=== PATIENT | male | born 1965 | race Caucasian/White ===

== ENCOUNTER → 2018-01-08 | Outpatient (CLI) | payer BC ==
[~2018-01-08] MED LIST: ALPR0.5T6 PO; DICL75TA PO; OXYC1TAB22 PO
--- NOTE | 2018-01-08 15:54 | EKG ---
[facility] [address] [place] [address] Test Date: 2018-01-08 Test Time: 15:52:23 Pat Name: AIRAM SORIA Department: Room: Gender: M Oncology Rn: SOM : 1965 Requested By: OMA PEREIRA Order Number: [id number] Reading MD: Harpal Palmer Measurements Intervals Brandon Rate: 63 P: 76 AK: 132 QRS: 103 QRSD: 90 T: 42 QT: 380 QTc: 392 Interpretive Statements SINUS RHYTHM RIGHTWARD AXIS Electronically Signed On 01-09-2018 15:41:39 QUALITY RN by Harpal Palmer
[2018-01-08 16:16] LABS: BASO # 0.1 x10^3/uL (0.0-0.2); BASO % 1 % (0-3); EOS # 0.1 x10^3/uL (0.0-0.7); EOS % 2 % (0-3); HEMATOCRIT 47.6 % (39.0-53.0); HEMOGLOBIN 16.2 g/dL (13.0-17.5); LYMPH # 3.4 x10^3/uL (1.0-4.8); LYMPH % 42 % (24-48); MEAN CORPUSCULAR HEMOGLOBIN 29 pg (25-35); MEAN CORPUSCULAR HGB CONC 34 g/dL (31-37); MEAN CORPUSCULAR VOLUME 86 fL (79-100); MONO # 0.8 x10^3/uL (0.0-1.1); MONO % 10 % (0-9); NEUT # 3.8 x10^3uL (1.8-7.7); NEUT % 46 % (31-73); PLATELET COUNT 315 x10^3/uL (140-400); RED BLOOD COUNT 5.53 x10^6/uL (4.30-5.70); RED CELL DISTRIBUTION WIDTH 14.2 % (11.5-14.5); WHITE BLOOD COUNT 8.1 x10^3/uL (4.0-11.0)
[2018-01-08 16:44] LABS: ALBUMIN 3.7 g/dL (3.4-5.0); CALCIUM 9.4 mg/dL (8.5-10.1); CREATININE 0.8 mg/dL (0.7-1.3); GFR 102.3; POTASSIUM 4.1 mmol/L (3.5-5.1); TOTAL BILIRUBIN 0.2 mg/dL (0.2-1.0); TOTAL PROTEIN 7.5 g/dL (6.4-8.2)
== END | disposition home or self-care (01) ==
LOC: SURGPAT 13:39
PROVIDERS: ATTEND Neurological Surgery
DX: Z01.818 Encounter for other preprocedural examination (principal); M48.02 Spinal stenosis, cervical region; M54.12 Radiculopathy, cervical region; I10 Essential (primary) hypertension
CPT/HCPCS: 36415; 80053; 85025; 87641; 93005

== ENCOUNTER 2018-01-22 08:19 | Observation (INO) | payer BC ==
--- NOTE | 2018-01-20 12:07 | HP ---
ADMIT DATE: 01/22/2018 DATE OF SURGERY: 01/22/2018. HISTORY OF PRESENT ILLNESS: The patient is a pleasant 52-year-old who is having difficulty with neck pain as well as pain which radiates into his right shoulder, arm and forearm to involve the right hand. He says he notices decreased strength in his right arm. He also notices unsteadiness with walking. The problem started in 04/2017 when his right arm gave out. He rates his pain as 6/10. Mornings are more painful for him. Increasing activity also increases his pain. He takes 2-4 oxycodone a day. Recently, he began having physical therapy in his neck, and he does not notice significant improvement. PAST MEDICAL HISTORY: Arthritis, gout, headaches and migraines, head or neck injury. PAST SURGICAL HISTORY: Right knee ACL in 1985, right knee ACL 1989, left knee meniscus, right knee meniscus. FAMILY HISTORY: Noncontributory. SOCIAL HISTORY: Tobacco use, currently he is not a smoker. He has been a smoker in the past, but quit 6-12 months ago. He is employed as a [employer]. . Never exercises. Denies substance abuse. Drinks alcohol 1-2 times per year. Drinks coffee daily and soda. ALLERGIES: AMOXICILLIN. CURRENT MEDICATIONS: Oxycodone and Xanax. REVIEW OF SYSTEMS: A 12-point review of systems was obtained and is noncontributory except for that mentioned above. PHYSICAL EXAMINATION: NEUROSURGERY EXAMINATION: GENERAL APPEARANCE: Alert, pleasant, no acute distress. HEAD: Normocephalic and atraumatic. NECK AND THYROID: Lywm-mi-qucfmxxt tenderness with palpation of posterior cervical region. SKIN: Warm and dry. MUSCULOSKELETAL: Cervical paraspinal muscle bulk is normal, cervical range of motion is restricted, normal range of motion of the upper extremities bilaterally. EXTREMITIES: No clubbing, cyanosis or edema. NEUROLOGIC: Alert and oriented x 3, normal recent and remote memory, strength 5/5 in bilateral upper and lower extremities except for 4+/5 right biceps and triceps. Sensory was intact to light touch in the upper and lower extremities, reflexes were trace and symmetric in the upper and lower extremities bilaterally, normal gait. IMAGING: I reviewed his cervical MRI scan from 08/2017. On that study at C6-C7, there is moderately severe cervical spinal stenosis of the central canal. There is severe bilateral neural foraminal narrowing. At C5-C6, there is a mild canal stenosis, but with severe bilateral neural foraminal narrowing. ASSESSMENT/PLAN: I believe the problems at C5-C6 and C6-C7 are responsible for a significant portion of his pain. I recommended that he undergo 2-level anterior cervical diskectomy and fusion. I discussed with him the surgery and the risks involved. He understands. He would like to go ahead. We will make the arrangements. OMA PEREIRA MD DR: PAULA/es JOB#: [id number] / [id number] STEPHON
[2018-01-22] VITALS (10 sets, daily range): BP systolic 94–126; BP diastolic 61–82
[~2018-01-22] VITALS: Ht 170.2 cm; Wt 67.1 kg
[~2018-01-22 08:19] MED LIST changes: +BACITRACIN 50,000 UNIT in IV NORMAL SALINE 1000ML BAG 1,000 ML IRR ONE; +BUPIVAC MPF-EPI 0.5%-1:200000 30 ML VIAL. ONE; +GELATIN SPONGE SIZE 100. ONE; +IV RINGERS,LACTATED 1000ML 1,000 ML IV SCH; +LIDOCAINE 1% PF 2 ML VIAL. ID PRN; +MORPHINE SULFATE 2 MG/ML VIAL. IV PRN; +ONDANSETRON PF 4 MG/2 ML VIAL. IV PRN; +PROCHLORPERAZINE 10 MG/2 ML VIAL. IV PRN; +THROMBIN TOPICAL 20,000 UNIT SPRAY.SYRN KIT TP ONE; +VANCOMYCIN 1GM IVPB FOR OMNI 250 ML IV ONE; +fentaNYL PF VIAL 100 MCG/2 ML VIAL IV PRN
[2018-01-22] MEDS ORDERED: IV RINGERS,LACTATED 1000ML 1,000 ML IV ONE (09:15)
[2018-01-22] MEDS ORDERED: PROPOFOL 100 ML IV ONE (09:24)
[2018-01-22] MEDS ORDERED: DESFLURANE > 120 MINUTES IH ONE (09:30)
[2018-01-22] MEDS ORDERED: fentaNYL PF VIAL 100 MCG/2 ML VIAL ONE ×2 (09:30→15:25)
[2018-01-22] MEDS ORDERED: REMIFENTANIL 2 MG VIAL. IV ONE (09:30)
[2018-01-22] MEDS ORDERED: GLYCOPYRROLATE 1 MG/5 ML VIAL. ONE (09:31)
[2018-01-22] MEDS ORDERED: PROPOFOL 20 ML IV ONE (09:31)
[2018-01-22] MEDS ORDERED: NEOSTIGMINE METHYLSULFATE 5 MG/5 ML SYRINGE. ONE (09:31)
[2018-01-22] MEDS ORDERED: LIDOCAINE 2% PF Vial for OR 5 ML VIAL. ONE (09:31)
[2018-01-22] MEDS ORDERED: ROCURONIUM 50 MG/5 ML VIAL. ONE (09:31)
[2018-01-22] MEDS ORDERED: ONDANSETRON PF 4 MG/2 ML VIAL. ONE (09:32)
[2018-01-22] MEDS ORDERED: DEXAMETHASONE SOD PHOS 20 MG/5 ML VIAL. ONE (09:32)
[2018-01-22] MEDS ORDERED: 0.9 % SODIUM CHLORIDE 20 ML VIAL. IJ ONE ×2 (09:32)
[2018-01-22] MEDS ORDERED: MIDAZOLAM HCL/PF 2 MG/2 ML VIAL. ONE (09:34)
[2018-01-22] MEDS ORDERED: PHENYLEPHRINE 10 MG/ML VIAL. ONE ×2 (09:40→14:39)
[2018-01-22] MEDS ORDERED: VANCOMYCIN 1GM IVPB FOR OMNI 250 ML ONE (09:40)
[2018-01-22] MEDS ORDERED: SCOPOLAMINE 1.5MG PATCH. TD ONE (11:00)
[2018-01-22] MEDS ORDERED: HYDROmorphone 2 MG/ML VIAL ONE (15:24)
[2018-01-22] MEDS ORDERED: PROCHLORPERAZINE 10 MG/2 ML VIAL. ONE (15:25)
[2018-01-22] MEDS: fentaNYL PF VIAL 100 MCG/2 ML VIAL IV PRN ×2 (15:34→15:41)
[2018-01-22] MEDS: HYDROmorphone 2 MG/ML VIAL IV PRN ×4 (16:01→17:08)
[2018-01-22] MEDS ORDERED: MAGNESIUM HYDROXIDE 2,400 MG/30 ML ORAL.SUSP. PO PRN (16:15)
[2018-01-22] MEDS ORDERED: NALOXONE 0.4 MG/ML VIAL. IV PRN (16:15)
[2018-01-22] MEDS ORDERED: CALCIUM CARBONATE 500 MG TAB.CHEW PO PRN (16:15)
[2018-01-22] MEDS ORDERED: diphenhydrAMINE HCL 25 MG CAPSULE PO PRN (16:15)
[2018-01-22] MEDS ORDERED: fentaNYL PF VIAL 100 MCG/2 ML VIAL IV PRN (16:15)
[2018-01-22] MEDS ORDERED: 0.9 % SODIUM CHLORIDE 10 ML DISP.SYRIN. IV PRN (16:15)
[2018-01-22] MEDS ORDERED: MAG HYDROX/ALUMINUM HYD/SIMETH 30 ML ORAL.SUSP PO PRN (16:15)
[2018-01-22] MEDS ORDERED: ONDANSETRON PF 4 MG/2 ML VIAL. IV PRN (16:15)
[2018-01-22] MEDS ORDERED: oxyCODONE/APAP 10/325 1 TAB TABLET PO PRN (16:15)
[2018-01-22] MEDS ORDERED: ALPRAZolam 0.5 MG TABLET PO PRN (16:15)
[2018-01-22] MEDS ORDERED: ACETAMINOPHEN 325 MG TABLET. PO PRN (16:15)
[2018-01-22] MEDS ORDERED: oxyCODONE/APAP 5/325 1 TAB TABLET PO PRN (16:15)
[2018-01-22] MEDS ORDERED: POTASSIUM CL 20MEQ D5-0.45NACL 1,000 ML IV SCH (18:00)
[2018-01-22] MEDS: oxyCODONE/APAP 5/325 1 TAB TABLET PO PRN (20:10)
[2018-01-22] MEDS: DOCUSATE SODIUM 100 MG CAPSULE. PO SCH (20:49)
[2018-01-22] MEDS: METHOCARBAMOL 750 MG TABLET PO SCH (20:49)
[2018-01-23] MEDS: oxyCODONE/APAP 5/325 1 TAB TABLET PO PRN ×3 (00:01→09:20)
[2018-01-23 03:15] VITALS: BP 105/72
[2018-01-23 06:33] VITALS: BP 134/46
[2018-01-23] MEDS: DOCUSATE SODIUM 100 MG CAPSULE. PO SCH (08:39)
[2018-01-23] MEDS: METHOCARBAMOL 750 MG TABLET PO SCH (08:39)
--- NOTE | 2018-01-23 09:08 | DISCH ---
DISCHARGE INSTRUCTIONS Condition on Discharge Condition on Discharge: Stable Activity After Discharge Activity Instructions for Disc: Activity as tolerated, Avoid exertion Other activity instructions: no driving for a week Bathing Instructions: Shower-keep dressing dry Lifting Instructions after Dis: No heavy lifting, No pulling or pushing, Do not lift >10 pounds Driving Instructions after Dis: Do not drive Diet after Discharge Additional Diet Restrictions: resuem home diet Wound Incision Care Wound/Incision Care: Ice to area for comfort Other wound/incision instructi: may remove dressing in 48 hrs if dry then may shower, no soaking Contacting the after DC Call your doctor for: Concerns you may have Follow-Up Follow up with: Dr. Pereira's nurse in 2 weeks [phone] OMA PEREIRA MD Jan 23, 2018 09:08
[2018-01-23] MEDS ORDERED: METH750T2 PO (09:10)
[2018-01-23] MEDS ORDERED: OXYC1TAB15 PO (09:10)
[2018-01-23] MEDS ORDERED: DOCU-109 PO (09:10)
[2018-01-23 10:37] VITALS: BP 121/81
--- NOTE | 2018-01-25 16:08 | PATHOLOGY ---
[facility] Accession Number: [id number] . 01 Material submitted: . CERVICAL DISC . 01 Clinical history: . Cervical stenosis, radiculopathy . 02 Diagnosis: Segments of fibrocartilaginous tissue and bone, cervical disc: - Degenerative changes of fibrocartilaginous tissue. (JPM:calender tender; 01/25/2018) MBR/01/25/2018 . 02 Comment: There is no evidence of an acute inflammatory process or malignancy. (JPM:calender tender; 01/25/2018) . 02 Electronically signed: . Antonio Rodriguez MD, Pathologist NPI- [id number] . 01 Gross description: . Received in formalin labeled "Stucky, Fausto, cervical disc," are several pieces of glistening, fibrous tissue measuring 2.5 x 1.5 x 0.6 cm in aggregate dimensions, containing small fragments of possible bone. The tissue is filtered and submitted entirely in cassette A1, following decalcification. (TSD; 01/23/2018) TOB/TOB . 02 Pathologist provided ICD-10: M51.36 . 02 CPT . 485725, [id number] Specimen Comment: A courtesy copy of this report has been sent to Specimen Comment: [phone]. Specimen Comment: Report sent to Performed at: 01 [facility] [address], [place] [id number] MD Suhas Buck MD Phone: [phone] Performed at: 02 [facility] [address] [place], [place] [id number] MD Antonio Rodriguez MD Phone: [phone]
--- NOTE | 2018-01-26 22:09 | OP ---
DATE OF SURGERY: 01/22/2018 PREOPERATIVE DIAGNOSES: 1. Cervical spinal stenosis, C6-C7. 2. Severe foraminal narrowing C5-C6. 3. Cervical myelopathy and cervical radiculopathy. POSTOPERATIVE DIAGNOSES: 1. Cervical spinal stenosis, C6-C7. 2. Severe foraminal narrowing C5-C6. 3. Cervical myelopathy and cervical radiculopathy. OPERATION PERFORMED: Anterior cervical microdiscectomy C5-C6, C6-C7; anterior cervical interbody fusion, C5-C6, C6-C7 with interbody fusion cage packed with allograft and autograft bone; anterior cervical plate C5-C6, C6-C7 using the Opteryx system. SURGEON: Raymundo Pereira M.D. SOLE ROUGHER: VANESSA Harris, assisted with the surgery. She assisted with the 2-level decompression and instrumentation. The operation was done with multimodality monitoring including EMG, SSEP, motor-evoked potentials. We also used fluoroscopy, microscopic dissection. OPERATIVE INDICATIONS: The patient is a pleasant 52-year-old man who developed difficulty with neck and right arm pain, which became more and more severe. He also developed weakness in his right arm. Following this, he began to develop problems with unsteadiness with walking. He went through physical therapy and did not improve. I discussed with him the results of his imaging studies and my recommendation for surgery. He understood the surgery and he understood well the risks of anterior neck surgery including the sequelae of injury to the soft tissue structures of the neck including the esophagus, trachea, carotid artery as well as the nervous elements. He strongly wished to go ahead with surgery. DESCRIPTION OF PROCEDURE: Following general endotracheal anesthesia, the patient was positioned supine on the Operating Room table. The anterior cervical region was prepped and draped in standard fashion. LASHONDA hose and AV impulse boots were applied for DVT prophylaxis. Microscope was draped. Fluoroscope was draped and brought into the field. Monitoring was established. Vancomycin 1 gram was given prior to the operation. Using fluoroscopic guidance, incision was made from the midline around to the right side in a skin crease directly over the C6-C7 interspace. I dissected down through skin and subcutaneous tissue, I dissected around the medial aspect of the sternocleidomastoid and carotid artery sheath down the anterior cervical vertebral bodies. I reflected the trachea and esophagus contralaterally and placed self-retaining retractor wedged in the longus colli muscles. I placed 14 mm pins in C6 and C7 and using microscopic technique, then I incised the anterior annulus with #11 blade. I performed a generous microdiscectomy with pituitary rongeurs as well as the endplate scrapers. I drilled the anterior spurring and saved this bone to use for the fusion and then posteriorly I drilled the posterior spurring. I opened the annulus and ligament widely bilaterally. There was considerable posterior disc bulging and soft disc, which I pulled back and removed and I fully decompressed the entire region. I measured and placed interbody fusion cage, which was packed with allograft and autograft bone after I obtained perfect hemostasis. I then moved superiorly removing the pin from C7 and placing it into C5 along with the retractors repositioned superiorly. I performed the identical operation at C5-C6, again performed a generous discectomy in which there was considerable degenerative change of the disc. I worked laterally bilaterally and had excellent distraction and opened the foramina. I had opened the annulus and the posterior ligament as well and I fully decompressed the entire region. Again, I obtained excellent hemostasis. Again, I prepared the disc space carefully and scraped the cartilaginous endplate. I then measured and placed interbody fusion cage packed with allograft and autograft bone. I placed an anterior plate and placed superior and inferior 14 mm screws followed by the remaining screws, which were all locked. I irrigated copiously with antibiotic solution and then removed the retractor and I explored carefully and assured myself of excellent hemostasis which there was. I gently removed my retractors, continued to irrigate, closed the platysma as a separate layer, closed with subcutaneous tissue and the skin was closed with 4-0 subcuticular stitch. The operation went very well and the patient was taken to the recovery room and awakened uneventfully with excellent strength. I was quite pleased with the surgery. RAYMUNDO PEREIRA MD DR: PAULA/es JOB#: [id number] / [id number] STEPHON
== END 2018-01-23 10:40 | disposition home or self-care (01) ==
LOC: SURG 08:19 → EDUNIT# 10:30 → 4 SOUTHEST 17:07
PROVIDERS: ADMIT Neurological Surgery; ATTEND Neurological Surgery
DX: M48.02 Spinal stenosis, cervical region (principal); M54.12 Radiculopathy, cervical region; G95.9 Disease of spinal cord, unspecified; M19.90 Unspecified osteoarthritis, unspecified site; G43.909 Migraine, unspecified, not intractable, without status migrainosus; Z72.0 Tobacco use
CPT/HCPCS: 20930; 22551; 22552; 22845; 22853; 76000; 88304; 88311; 96374; 97110; 97162; 97530; 99406; A7015; C1713; C1821; G0378; G0379; G8978; G8979; G8980; J0780; J1100; J1170; J2001; J2250; J2405; J2704; J2710; J3010; J3370; J3490; J7030; J7120

== ENCOUNTER → 2018-04-13 | Outpatient (CLI) | payer BC ==
[~2018-04-13] MED LIST changes: -BACITRACIN 50,000 UNIT in IV NORMAL SALINE 1000ML BAG 1,000 ML IRR ONE; -BUPIVAC MPF-EPI 0.5%-1:200000 30 ML VIAL. ONE; +DOCU-109 PO; -GELATIN SPONGE SIZE 100. ONE; +IOHEXOL 180 MG/ML 10 ML VIAL. ONE; -IV RINGERS,LACTATED 1000ML 1,000 ML IV SCH; -LIDOCAINE 1% PF 2 ML VIAL. ID PRN; +METH750T2 PO; -MORPHINE SULFATE 2 MG/ML VIAL. IV PRN; -ONDANSETRON PF 4 MG/2 ML VIAL. IV PRN; +OXYC1TAB15 PO; -PROCHLORPERAZINE 10 MG/2 ML VIAL. IV PRN; +SIMV20TA3 PO; -THROMBIN TOPICAL 20,000 UNIT SPRAY.SYRN KIT TP ONE; -VANCOMYCIN 1GM IVPB FOR OMNI 250 ML IV ONE; -fentaNYL PF VIAL 100 MCG/2 ML VIAL IV PRN; +methylPREDNISolone ACETATE 40 MG/ML VIAL. ONE; +methylPREDNISolone ACETATE 80 MG/ML VIAL. ONE
--- NOTE | 2018-04-13 22:56 | PAIN ---
DATE OF SERVICE: 04/13/2018 INITIAL CONSULTATION FOR PAIN CLINIC CHIEF COMPLAINT: Low back and right lower extremity pain. HISTORY OF PRESENT ILLNESS: This is a 52-year-old male who presents with history of pain for about 12 years, worse over the past 1 year, pain in the low back, right lower extremity, posterior gluteus, posterolateral thigh, lateral anterior thigh, medial thigh, medial lower leg and medial calf. This has been going on much worse over the past year, worse with standing, walking and changing positions. No radiation on the left side, but the right side is significantly affected with fatigability of the right leg. The patient is walking with a noticeable limp. The patient reports the pain awakens him from sleep about every 3 hours and does affect his ability to walk significantly. He is not using any assistive devices; however. The patient has had chiropractic treatment in the past, which has helped to a limited extent. He has been doing exercises on his own, but is having difficulty getting these done secondary to the pain. The patient takes oxycodone and is trying to wean himself down. He has been taking two a day for several months and would like to decrease this as well as it is beginning to work less and less. The patient did have an MRI scan of the lumbar spine, which shows L3-L4 moderate central spinal stenosis, right lateral recess stenosis, mild to moderate right and minimal left neural foraminal stenosis, L4-L5 with moderate central spinal stenosis and right lateral recess stenosis, marked right and moderate left neural foraminal stenosis with L5-S1 moderate left and [id number] right neural foraminal stenosis as well. The patient reports his disability rate from 0-10, 10 being the worst as at 9 with family home responsibilities, social activity and sexual behavior, 10 with recreation and occupation and 4 with life support activities. The patient reports the pain is better with sitting or lying down, but again is awakening him from sleep every 3 hours or so, sitting for more than 15-20 minutes it begins to ache as well. Standing and walking; however, is the most exacerbating pain. The patient describes it sharp, stabbing, throbbing, shooting, radiating down the right leg. He described changes during the day with activity, worse with standing, walking or increased activity. PAST MEDICAL HISTORY: The patient's past medical history is significant for the shortness of breath, cigarette smoking quit 2 months ago, hypercholesterolemia, diverticulosis and arthritis. PREVIOUS SURGERY: Includes an anterior cervical diskectomy and fusion in 01/2018. Previous knee surgery x 8 bilaterally. CURRENT MEDICATIONS: Include alprazolam, simvastatin, diclofenac and oxycodone. ALLERGIES: THE PATIENT IS ALLERGIC TO AMOXICILLIN. FAMILY HISTORY: Significant for no major medical problems or conditions he is aware of. SOCIAL HISTORY: The patient drinks alcohol about 3-5 beers a day, quit smoking 2 months ago, previously smoked a pack a day for about 20 years. Does not use any illegal, illicit or recreational drugs. 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 REVIEW OF SYSTEMS: The patient's review of systems is positive for those items mentioned in the history of present illness. All systems reviewed and otherwise negative. It is complete, full and well documented on the patient's chart. PHYSICAL EXAMINATION: VITAL SIGNS: The patient's blood pressure is 124/66, pulse 81, respirations 18, temperature 98.1 degrees Fahrenheit, height is 5 feet 7 inches and weight is 153 pounds. GENERAL: The patient is awake, alert, oriented, appropriate, very pleasant demeanor. HEENT: Head shows normocephalic and atraumatic. Extraocular movements are intact and symmetrical. Oral cavity: Mucous membranes are moist and pink. Dentition is intact. NECK: Shows anterior throat is supple without palpable lymphadenopathy noted. Swallow reflex is symmetrical. CHEST: Shows normal on inspection. Breath sounds are clear to auscultation bilaterally. HEART: Shows S1 and S2 clear. No murmurs are auscultated. ABDOMEN: Soft, nontender and nondistended. No palpable organomegaly is noted. No rebound or guarding demonstrated. BACK: The patient's back shows spine grossly in the midline. Normal cervical lordotic curvature, thoracic kyphotic curvature and lumbar lordotic curvature. Lumbar paraspinous muscle shows symmetrical on inspection. On palpation, shows moderate tenderness diffusely in the middle and lower lumbar distribution of the paraspinous muscles without significant radiation or trigger points. The patient has good rotational motion of the lumbar spine both laterally as well as extension and flexion without significant difficulty. The patient shows no tenderness over the sacrum or sacroiliac regions over the spinous processes. The patient has good rotational motion of the lumbar spine, both laterally as well as extension and flexion without significant disability or pain reported. EXTREMITIES: The patient's lower extremities show deep tendon reflexes 1+ in the patellar and tendo calcaneus tendons are equal. Motor exam is strong with approximately a 4 on a scale of 5 dorsiflexion and extension on the right and 5/5 on the left, quadriceps and hamstring flexion also 4/5 on the right and 5/5 on the left. Peripheral pulses are 1+ posterior tibia. No peripheral edema is noted bilaterally. Straight leg raise is noted to be positive on the right at about 35 degrees, which decreases with knee flexion, left side is negative. The patient's Gaenslen's and Camilo's maneuvers are negative bilaterally as well. SKIN: The patient's skin shows warm and dry, good turgor. No edema. No sores, rashes or bruising. IMPRESSION: 1. This is a 52-year-old male with a long history of low back and right lower extremity pain, worse over the past year or so with radicular qualities. 2. MRI scan of the lumbar spine as noted. 3. Arthritis. 4. Hypercholesterolemia. 5. Recent cigarette smoking. PLAN: Options were discussed with the patient including conservative medical management, physical therapy and interventional techniques. He would like to pursue interventional techniques. We discussed a lumbar epidural steroid injection using description as well as anatomical models to describe the procedure. Risks were then discussed including, but not limited to bleeding, infection, possibility of epidural hematoma, subsequent neurological compromise, dural puncture, headache, spinal cord and/or nerve damage, side effects of steroid medication and poor results regarding pain control. The patient understands and wishes to proceed. The patient will return to the clinic in approximately 2 weeks for followup, was counseled as to return appointment, activity level and side effects to be aware of. DIAGNOSES: Lumbar radiculopathy with lumbar degenerative disk disease and lumbar spinal stenosis. PROCEDURE: Lumbar epidural steroid injection, translaminar approach L4-L5 level using C-arm fluoroscopic guidance under sterile prep and drape using local anesthetic. MEDICATION INJECTED: A total of 120 mg Depo-Medrol plus 10 mL of preservative-free normal saline and 2 mL of Isovue for contrast. CONDITION AT DISCHARGE: Stable. The patient tolerated the procedure well and had no complications. DUKE COLLIER MD DR: MAR/es JOB#: [id number] / [id number] JW Chatterjee
== END | disposition home or self-care (01) ==
LOC: PNCL 09:46
PROVIDERS: ATTEND Anesthesiology
DX: M51.16 Intervertebral disc disorders with radiculopathy, lumbar region (principal); M48.061 Spinal stenosis, lumbar region without neurogenic claudication; M19.90 Unspecified osteoarthritis, unspecified site; E78.00 Pure hypercholesterolemia, unspecified; Z87.891 Personal history of nicotine dependence; Z87.19 Personal history of other diseases of the digestive system; Z79.899 Other long term (current) drug therapy; Z88.1 Allergy status to other antibiotic agents; Z72.89 Other problems related to lifestyle
CPT/HCPCS: 62323; J1030; J1040; Q9965

== ENCOUNTER → 2018-04-27 | Outpatient (CLI) | payer BC ==
[~2018-04-27] MED LIST changes: +METH-38 PO
--- NOTE | 2018-04-27 19:27 | PAIN ---
DATE OF SERVICE: 04/27/2018 DIAGNOSES: Lumbar radiculopathy with lumbar degenerative disk disease and lumbar spinal stenosis. HISTORY OF PRESENT ILLNESS: The patient is a 52-year-old male who returns for followup status post lumbar epidural steroid injection x 1. The patient reports he did well initially, but after he stepped down hard from his truck, the pain returned after just a few days, but before that, it was 100% improved. The patient reports this lasted for several days until he jumped out of the truck and now, the pain has returned in the low back, right leg, right posterior gluteus, lateral thigh, lateral anterior thigh, medial thigh on the right side only. The patient reports it is a 9 on a scale of 10 at its worst, 6 on average, 3 at its least and is a 6 today. The patient reports it is aching, sharp, stabbing, radiating, shooting and dull across the low back, but sharper in the leg. The patient reports it does not awaken him from sleep, much better with sitting or lying down. Initially, he was increasing distance walking, doing work activities, household activities, traveling with much greater ease and comfort, again sleeping well without disturbance. The patient reports no new motor or sensory deficits, no new bowel or bladder incontinence or other complaints. PHYSICAL EXAMINATION: VITAL SIGNS: Today, the patient's blood pressure is 144/103, pulse 73, respirations 18, temperature 97.5 degrees Fahrenheit. Height is 5 feet 7 inches, weight 155 pounds. GENERAL: The patient is awake, alert, oriented, appropriate, very pleasant demeanor. HEENT: Shows normocephalic, atraumatic. Extraocular movements are intact and symmetrical. Oral cavity: Mucous membranes moist and pink. Dentition is intact. NECK: Shows anterior throat supple without palpable lymphadenopathy noted. Swallow reflex is symmetrical. CHEST: Shows normal on inspection. Breath sounds clear to auscultation bilaterally. HEART: Shows S1, S2 clear. No murmurs auscultated. ABDOMEN: Soft, nontender, nondistended. No palpable organomegaly is noted. No rebound or guarding demonstrated. BACK: Shows spine grossly in the midline. Normal appearing thoracic kyphosis and lumbar lordotic curvature. Lumbar paraspinous musculature shows symmetrical on inspection with palpation shows some moderate tenderness but only diffusely without radiation bilaterally. The patient has good rotational motion of lumbar spine, both laterally as well as extension and flexion without difficulty. LOWER EXTREMITIES: Show deep tendon reflexes 1+ in the patellar and tendo calcaneus tendons. Motor exam is approximately 4 on a scale of 5 on the right with dorsiflexion, extension, 5/5 on the left. Peripheral pulses are 1+ posterior tibia. No peripheral edema is noted. Options were discussed with the patient. The patient's old chart was reviewed as his current medication regimen and updated. Current review of systems is updated today as well. We will proceed with a lumbar epidural steroid injection today, the second in the series with fluoroscopic guidance. Risks were again discussed including, but not limited to bleeding, infection, possibility of epidural hematoma, subsequent neurologic compromise, dural puncture, headaches, spinal cord and/or nerve damage, side effects of steroid medication and poor results regarding pain control. The patient understands and wished to proceed. The patient will return to clinic in approximately 2 weeks for followup, was counseled as to return appointment, activity level and side effects to be aware of. DIAGNOSES: Lumbar radiculopathy with lumbar spinal stenosis, lumbar degenerative disk disease. PROCEDURE: Lumbar epidural steroid injection, translaminar approach L4-L5 level using C-arm fluoroscopic guidance under sterile prep and drape using local anesthetic. MEDICATION INJECTED: A total of 120 mg Depo-Medrol plus 10 mL of preservative-free normal saline and 2 mL of Isovue for contrast. CONDITION AT DISCHARGE: Stable. The patient tolerated procedure well, had no complications. DUKE COLLIER MD DR: MAR/es JOB#: [id number] / [id number]
== END | disposition home or self-care (01) ==
LOC: PNCL 08:48
PROVIDERS: ATTEND Anesthesiology
DX: M51.16 Intervertebral disc disorders with radiculopathy, lumbar region (principal); M48.061 Spinal stenosis, lumbar region without neurogenic claudication; Z88.1 Allergy status to other antibiotic agents
CPT/HCPCS: 62323; J1030; J1040; Q9965

== ENCOUNTER → 2018-06-25 | Outpatient (CLI) | payer BC ==
[~2018-06-25] MED LIST changes: -IOHEXOL 180 MG/ML 10 ML VIAL. ONE; -methylPREDNISolone ACETATE 40 MG/ML VIAL. ONE; -methylPREDNISolone ACETATE 80 MG/ML VIAL. ONE
[2018-06-25 14:10] LABS: BASO # 0.1 x10^3/uL (0.0-0.2); BASO % 1 % (0-3); EOS # 0.1 x10^3/uL (0.0-0.7); EOS % 1 % (0-3); HEMOGLOBIN 15.1 g/dL (13.0-17.5); LYMPH # 2.7 x10^3/uL (1.0-4.8); LYMPH % 38 % (24-48); MEAN CORPUSCULAR HEMOGLOBIN 30 pg (25-35); MEAN CORPUSCULAR HGB CONC 34 g/dL (31-37); MEAN CORPUSCULAR VOLUME 88 fL (79-100); MONO # 0.6 x10^3/uL (0.0-1.1); MONO % 8 % (0-9); NEUT # 3.6 x10^3uL (1.8-7.7); NEUT % 52 % (31-73); PLATELET COUNT 297 x10^3/uL (140-400); RED BLOOD COUNT 5.03 x10^6/uL (4.30-5.70); RED CELL DISTRIBUTION WIDTH 14.1 % (11.5-14.5); WHITE BLOOD COUNT 7.1 x10^3/uL (4.0-11.0)
[2018-06-25 14:34] LABS: ALBUMIN 3.8 g/dL (3.4-5.0); ALBUMIN/GLOBULIN RATIO 1.2 (1.0-1.7); CALCIUM 9.1 mg/dL (8.5-10.1); CREATININE 0.8 mg/dL (0.7-1.3); GFR 102.3; POTASSIUM 4.1 mmol/L (3.5-5.1); TOTAL BILIRUBIN 0.3 mg/dL (0.2-1.0); TOTAL PROTEIN 7.1 g/dL (6.4-8.2)
== END | disposition home or self-care (01) ==
LOC: SURGPAT 13:39
PROVIDERS: ATTEND Neurological Surgery
DX: Z01.818 Encounter for other preprocedural examination (principal); M48.062 Spinal stenosis, lumbar region with neurogenic claudication; M51.16 Intervertebral disc disorders with radiculopathy, lumbar region; Z88.2 Allergy status to sulfonamides
CPT/HCPCS: 36415; 80053; 85025; 87641

== ENCOUNTER 2018-06-29 07:11 | Day surgery (SDC) | payer BC ==
--- NOTE | 2018-06-25 16:04 | RAD ---
Chest, 2 views, 06/25/2018: HISTORY: Preop evaluation for lumbar surgery The heart size and pulmonary vascularity are normal. No pulmonary infiltrate is seen. There is no evidence of pleural fluid. Mild scattered spurs are present in the spine. A surgical plate and screws is evident in the lower cervical region. IMPRESSION: No acute cardiopulmonary abnormality is detected. Electronically signed by: Rasheed Bruno MD (06/25/2018 4:02 PM) [facility]
--- NOTE | 2018-06-28 11:15 | PREOP HP ---
DATE OF SERVICE: 06/29/2018 DATE OF SURGERY: 06/29/2018 HISTORY OF PRESENT ILLNESS: The patient is a pleasant 52-year-old who is having difficulty with low back pain on the right side and pain which radiates into his right posterior thigh. He says that occasionally the pain can be associated with right leg weakness. Rarely, he can notice pain on the left side. The problems have been present for years, but have been worse over the last year. He rates the pain as a 7-8/10. Walking markedly increases his pain. Lying down or sitting in a recliner helps him. He did physical therapy in 10/2017 or 11/2017. Epidural steroid injections have been done recently, which he said helped about 3 days each. PAST MEDICAL HISTORY: Arthritis, gout, headaches and migraines, head or neck injury. PAST SURGICAL HISTORY: Right knee ACL repair in 1985, the right knee ACL repair in 1989, right knee meniscus repair, left knee meniscus, ACDF C5-C6 and C6-C7 in 01/2018. FAMILY HISTORY: No family history documented. SOCIAL HISTORY: He is employed as a [employer]. . Never exercises. Denies substance abuse. Quit smoking this year. Drinks alcohol 1-2 times per year. Drinks coffee and soda daily. ALLERGIES: AMOXICILLIN. CURRENT MEDICATIONS: Alprazolam, oxycodone. REVIEW OF SYSTEMS: A 12-point review of systems was obtained and is noncontributory except for that mentioned above. PHYSICAL EXAMINATION: NEUROSURGERY EXAMINATION: GENERAL APPEARANCE: Alert, pleasant, no acute distress. HEAD: Normocephalic, atraumatic. SKIN: Warm and dry. EXTREMITIES: No clubbing, cyanosis or edema. NEUROLOGIC: Alert and oriented x 3, normal recent and remote memory. Strength 5/5 in bilateral upper and lower extremities, sensory was intact to light touch in the upper and lower extremities, reflexes were present and symmetric in the upper and lower extremities, positive straight leg raising on the right, buttock and posterior thigh and posterior knee pain. Negative straight leg raise on the left, normal gait. IMAGING: I reviewed a lumbar MRI scan from 01/19/2018. On that study, at L3-L4, there is moderate central canal stenosis, right paracentral disk extrusion and right lateral recess stenosis. At L4-L5, there is more significant moderate central canal stenosis and right lateral recess stenosis along with marked right neural foraminal narrowing. ASSESSMENT/ PLAN: I believe his symptoms are due to the lateral recess stenosis and central canal stenosis at L3-L4 and L4-L5. My recommendation is to perform a lumbar microdecompression and microdiscectomy at L3-L4 and a right direct laminectomy and decompression of the canal and right lateral recess at L4-L5. I spoke with him about surgery and the risks and expected postoperative course. He understands. He would like to go ahead. We will make the arrangements. OMA PEREIRA MD DR: PAULA/es JOB#: [id number] / [id number] STEPHON
[~2018-06-29] VITALS: Ht 170.2 cm; Wt 68.9 kg
[~2018-06-29 07:11] MED LIST changes: +BACITRACIN 50,000 UNIT in IV NORMAL SALINE 1000ML BAG 1,000 ML IRR ONE; +BUPIVAC MPF-EPI 0.5%-1:200000 30 ML VIAL. ONE; +GELATIN SPONGE SIZE 100. ONE; +IV RINGERS,LACTATED 1000ML 1,000 ML IV SCH; +KETOROLAC 60 MG/2 ML INJ FOR OR. ONE; -METH-38 PO; +MORPHINE SULFATE 2 MG/ML VIAL. IV PRN; +ONDANSETRON PF 4 MG/2 ML VIAL. IV PRN; +THROMBIN TOPICAL 20,000 UNIT SPRAY.SYRN KIT TP ONE; +fentaNYL PF VIAL 100 MCG/2 ML VIAL IV PRN
[2018-06-29] MEDS ORDERED: SCOPOLAMINE 1.5MG PATCH. TD ONE (08:15)
[2018-06-29] MEDS ORDERED: fentaNYL PF VIAL 100 MCG/2 ML VIAL ONE (08:27)
[2018-06-29] MEDS ORDERED: REMIFENTANIL 2 MG VIAL. IV ONE (08:28)
[2018-06-29] MEDS ORDERED: MIDAZOLAM HCL/PF 2 MG/2 ML VIAL. ONE (08:28)
[2018-06-29] MEDS ORDERED: NEOSTIGMINE 10 MG/10 ML VIAL. ONE (09:08)
[2018-06-29] MEDS ORDERED: GLYCOPYRROLATE 1 MG/5 ML VIAL. ONE (09:08)
[2018-06-29] MEDS ORDERED: LIDOCAINE 2% PF 5 ML VIAL. ONE (09:12)
[2018-06-29] MEDS ORDERED: ONDANSETRON PF 4 MG/2 ML VIAL. ONE (09:12)
[2018-06-29] MEDS ORDERED: DEXAMETHASONE SOD PHOS 20 MG/5 ML VIAL. ONE (09:12)
[2018-06-29] MEDS ORDERED: ePHEDrine PF IN SALINE 50 MG/10 ML SYRINGE. IV ONE ×2 (09:12→11:07)
[2018-06-29] MEDS ORDERED: PROPOFOL 20 ML IV ONE (09:12)
[2018-06-29] MEDS ORDERED: FAMOTIDINE 20 MG/2 ML VIAL ONE (09:25)
[2018-06-29] MEDS ORDERED: PROPOFOL 50 ML IV ONE (10:15)
[2018-06-29] MEDS ORDERED: DESFLURANE > 120 MINUTES IH ONE (10:46)
[2018-06-29] MEDS ORDERED: METH-38 PO (11:17)
[2018-06-29] MEDS ORDERED: DOCU-109 PO (11:17)
--- NOTE | 2018-06-29 11:18 | DISCH ---
DISCHARGE INSTRUCTIONS Condition on Discharge Condition on Discharge: Stable Activity After Discharge Activity Instructions for Disc: Activity as tolerated, Avoid exertion Other activity instructions: no driving for a week Bathing Instructions: Shower-keep dressing dry Lifting Instructions after Dis: No heavy lifting, No pulling or pushing Exercise Instruction after Dis: Exercise per therapy Driving Instructions after Dis: Do not drive Diet after Discharge Additional Diet Restrictions: resume home diet Wound Incision Care Wound/Incision Care: Ice to area for comfort, May get incision wet Other wound/incision instructi: may remove dressing in 48 hours if dry then may shower, no soaking Contacting the DRJob after DC Call your doctor for: Concerns you may have Follow-Up Follow up with: Dr. Pereira's nurse in 2 weeks [phone] OMA PEREIRA MD June 29, 2018 11:18
[2018-06-29] MEDS: PROCHLORPERAZINE 10 MG/2 ML VIAL. IV PRN ×2 (11:35→11:56)
[2018-06-29] MEDS: fentaNYL PF VIAL 100 MCG/2 ML VIAL IV PRN ×2 (11:36→11:57)
--- NOTE | 2018-06-29 11:43 | OP ---
DATE OF SURGERY: 06/29/2018 PREOPERATIVE DIAGNOSES: 1. Lumbar stenosis L3-L4, L4-L5 with right lumbar radiculopathy. 2. Disc herniation, L3-L4. POSTOPERATIVE DIAGNOSES: 1. Lumbar stenosis L3-L4, L4-L5 with right lumbar radiculopathy. 2. Disc herniation, L3-L4. OPERATION PERFORMED: 1. Hemilaminotomy and microdiscectomy, L3-L4, right. 2. Hemilaminotomy with decompression of dura and nerve root, L4-L5, right. The operation was done with EMG monitoring, fluoroscopy, microscopic dissection. SURGEON: Raymundo Pereira M.D. SENIOR DEVOPS ENGINEER: Mariam Baum APRN OPERATIVE FINDINGS: There was a subligamentous disc herniation at L3-L4, which was removed and decompressed the dura and nerve roots. At L4-L5, there was a synovial cyst within the joint space, which was protruding posteriorly as well as an increased spondylolisthesis when compared to his preoperative films at this level. OPERATIVE INDICATIONS: The patient is a pleasant 52-year-old who developed severe intractable back pain, which was gradually worsening along with intermittent pain, which radiated to his right lower extremity. The pain and problem became more and more significant and conservative measures did not help and I recommended lumbar microsurgery after the above findings were seen. He understood the surgery, the risks, technique and expected postoperative course. DESCRIPTION OF PROCEDURE: Following general endotracheal anesthesia, the patient was positioned prone on the Clyde table. Lumbar region was prepped and draped in standard fashion. LASHONDA hose and AV impulse boots were applied for DVT prophylaxis. The microscope was draped. Fluoroscopy was draped and brought into field. Monitoring was established. Ancef 2 grams was given less than 1 hour prior to the initiation of the surgery. Using fluoroscopic guidance, a midline incision was made from L3 to inferior L5. It was taken down to skin and subcutaneous tissues, reflected the paraspinal muscles and placed a [place]ira micro disc retractor. I directed my attention to L3-L4 and brought in the microscope and with microscopic technique, using the high speed air drill, I burred down a generous hemilaminotomy. Ligamentum flavum was thickened and I peeled this back away exposing the dura and then I performed a partial foraminotomy exposing the L4 root. I retracted the root medially and there was a moderately large subligamentous disc and I incised the annulus and performed a discectomy with pituitary rongeurs. As I worked, the region became very well decompressed and the nerve became very free and mobile where it was quite tight prior to the discectomy. I then moved down to L4-L5 and in a similar fashion, burred a hemilaminotomy. The ligamentum flavum at this level was densely calcified and I gently worked and freed this up from the underlying dura and peeled this from medial to lateral, again performing a partial foraminotomy. As I worked, the region became very well decompressed. I became concerned about the width of my exposure because I did note that the spondylolisthesis seen on the imaging studies was increased when compared to his preoperative films. Additionally, I found synovial cyst at L4-L5 on the right, which was extending posteromedially and I did remove this. Following this, I explored carefully, the disc at L4-L5, was flat, no discectomy was warranted. I irrigated copiously. There was some scarring of the dura medially to the underlying ligament and that did limit my ability to decompress far medially, but I was able to get an excellent decompression and fully decompressed the dura and nerve root at L3-L4 and L4-L5. I irrigated copiously with antibiotic solution. I removed the retractor, obtained hemostasis in the muscle and irrigated again. I then closed the wound in layers with absorbable suture. The skin was closed with a 4-0 subcuticular suture. The surgery went very well. RAYMUNDO PEREIRA MD DR: PAULA/es JOB#: [id number] / [id number] STEPHON
[2018-06-29] MEDS: HYDROmorphone 2 MG/ML VIAL IV PRN ×2 (11:58→12:31)
[2018-06-29] MEDS ORDERED: oxyCODONE/APAP 10/325 1 TAB TABLET PO ONE ×2 (12:15)
[2018-06-29 14:43] VITALS: BP 97/60
--- NOTE | 2018-07-03 15:06 | PATHOLOGY ---
[facility] Accession Number: [id number] . 01 Material submitted: . vertebral column - LUMBAR DECOMPRESSION AND DISC . 01 Clinical history: . Lumbar stenosis with neurogenic claudication, herniated radiculopathy . 02 Diagnosis: Segments of fibrocartilaginous, fibroadipose and skeletal muscle tissue and bone, lumbar decompression and disc: - Degenerative changes of fibrocartilaginous tissue. ([facility] 07/03/2018) [facility]/07/03/2018 . 02 Comment: There is no evidence of an acute inflammatory process or malignancy. ([facility] 07/03/2018) . 02 Electronically signed: . Antonio Rodriguez MD, Pathologist NPI- [id number] . 01 Gross description: . The specimen is received in formalin, labeled "Stucky, Fausto, lumbar decompression and disc", are multiple irregular fragments of rushing-pink, rubbery, fibrous tissue admixed with possible bone fragments measuring 2.7 x 2.5 x 0.8 cm in aggregate. Wiring Inspector tissue is submitted in A1 after decalcification. ([facility]; 06/29/2018) . SHS/SHS . 02 Pathologist provided ICD-10: M51.36 . 02 CPT . 666866, [id number] Specimen Comment: A courtesy copy of this report has been sent to Specimen Comment: [phone]. Specimen Comment: Report sent to DR SANCHEZ Performed at: 01 [facility] [address], [place] [id number] MD Suhas Buck MD Phone: [phone] Performed at: 02 [facility] [address], [place] [id number] MD Antonio Rodriguez MD Phone: [phone]
== END 2018-06-29 15:37 | disposition home or self-care (01) ==
LOC: SURG 07:11
PROVIDERS: ATTEND Neurological Surgery
DX: M51.16 Intervertebral disc disorders with radiculopathy, lumbar region (principal); M48.061 Spinal stenosis, lumbar region without neurogenic claudication; Z88.1 Allergy status to other antibiotic agents; M19.90 Unspecified osteoarthritis, unspecified site; G43.909 Migraine, unspecified, not intractable, without status migrainosus; Z98.890 Other specified postprocedural states; Z72.89 Other problems related to lifestyle; Z87.891 Personal history of nicotine dependence; Z79.899 Other long term (current) drug therapy
CPT/HCPCS: 63030; 63047; 71046; 76000; 97110; 97162; 97530; A7015; G8978; G8979; G8980; J0171; J0696; J0780; J1100; J1170; J1885; J2001; J2250; J2405; J2704; J2710; J3010; J3490; J7030; J7120; 88304; 88311

== ENCOUNTER 2019-01-11 09:59 | Day surgery (SDC) | payer BC ==
[~2019-01-11] VITALS: Ht 170.2 cm; Wt 71.0 kg
[~2019-01-11 09:59] MED LIST changes: -BACITRACIN 50,000 UNIT in IV NORMAL SALINE 1000ML BAG 1,000 ML IRR ONE; -BUPIVAC MPF-EPI 0.5%-1:200000 30 ML VIAL. ONE; +BUPIVACAINE-EPI 0.5%-1:200000 MPF 30 ML VIAL. INJ ONE; -GELATIN SPONGE SIZE 100. ONE; +HYDROmorphone 2 MG/ML VIAL IV PRN; -KETOROLAC 60 MG/2 ML INJ FOR OR. ONE; +LIDOCAINE 1% PF 2 ML VIAL. ID PRN; +METH-38 PO; +PROCHLORPERAZINE 10 MG/2 ML VIAL. IV PRN; +SIMV20TA18 PO; -SIMV20TA3 PO; -THROMBIN TOPICAL 20,000 UNIT SPRAY.SYRN KIT TP ONE
[2019-01-11] MEDS ORDERED: SCOPOLAMINE 1.5MG PATCH. TD ONE (11:00)
[2019-01-11] MEDS ORDERED: IV RINGERS,LACTATED 1000ML 1,000 ML IV SCH (11:05)
[2019-01-11] MEDS ORDERED: fentaNYL PF VIAL 100 MCG/2 ML VIAL IV PRN ×2 (11:15)
[2019-01-11] MEDS ORDERED: MORPHINE SULFATE 2 MG/ML VIAL. IV PRN (11:15)
[2019-01-11] MEDS ORDERED: HYDROmorphone 2 MG/ML VIAL IV PRN (11:15)
[2019-01-11] MEDS ORDERED: ONDANSETRON PF 4 MG/2 ML VIAL. IV PRN (11:15)
[2019-01-11] MEDS ORDERED: PROCHLORPERAZINE 10 MG/2 ML VIAL. IV PRN (11:15)
[2019-01-11] MEDS ORDERED: BUPIVACAINE MPF 0.5% 30 ML VIAL. ONE (12:40)
[2019-01-11] MEDS ORDERED: LIDOCAINE 2% PF 5 ML VIAL. ONE (12:49)
[2019-01-11] MEDS ORDERED: DEXAMETHASONE SOD PHOS 4 MG/ML VIAL ONE (12:49)
[2019-01-11] MEDS ORDERED: fentaNYL PF VIAL 100 MCG/2 ML VIAL ONE (12:49)
[2019-01-11] MEDS ORDERED: MIDAZOLAM HCL/PF 2 MG/2 ML VIAL. ONE (12:49)
[2019-01-11] MEDS ORDERED: ONDANSETRON PF 4 MG/2 ML VIAL. ONE (12:49)
[2019-01-11] MEDS ORDERED: PROPOFOL 20 ML IV ONE (12:50)
[2019-01-11] MEDS ORDERED: PHENYLEPHRINE in 0.9% NACL PF 1 MG/10 ML SYRINGE. IV ONE (13:16)
[2019-01-11] MEDS ORDERED: OXYC1TAB22 PO (13:52)
--- NOTE | 2019-01-11 13:53 | DISCH ---
DISCHARGE INSTRUCTIONS Condition on Discharge Condition on Discharge: Stable Activity After Discharge Activity Instructions for Disc: Other, see below (slow advance to activity as tolerated) Bathing Instructions: Shower-keep dressing dry Lifting Instructions after Dis: No heavy lifting, No pulling or pushing Driving Instructions after Dis: Do not drive Diet after Discharge Diet after Discharge: Regular Additional Diet Restrictions: resume home diet Wound Incision Care Wound/Incision Care: Ice to area for comfort, Change dressing (May remove dressing in 2 days may then shower no soaking until sutures removed) Contacting the after DC Call your doctor for: Concerns you may have Follow-Up Follow up with: Dr. Owens 10 days ARPITA OWENS MD Jan 11, 2019 13:53
--- NOTE | 2019-01-11 14:01 | PDOC4 ---
Operative Note Operative Note Date of surgery: 01/11/2019 Preoperative diagnosis: Meniscal tears right knee Postoperative diagnosis: Same with absence of most of the lateral meniscus Operative procedure: Right knee arthroscopy partial medial and lateral meniscectomy Surgeon: Roman Anesthesia: Gen. Estimated blood loss: 5 mL Complications: None Operative indications: Please see my preoperative clinic notes and history and physical for details operative indications and note that we had discussed the structure and function of the meniscus the rationale for the procedure the possibility of continued pain infection nerve or blood vessel damage medical or other anesthetic complications and the fact that I cannot undo any degenerative changes or the pain caused by them in association with this procedure. Operative text: Patient was identified procedure verified patient placed in the supine position operating table. After adequate amounts of general anesthesia were administered a tourniquet was placed on the right thigh and the right lower extremity was prepped and draped in standard sterile fashion. After timeout was performed patient procedure identified and verified the right lower extremity was exsanguinated by Esmarch bandage tourniquet inflated to 250 mmHg. A lateral portal was established a medial portal established using spinal needle localiza tion and the knee joint was systematically examined. There was noted to be grade 3 chondromalacia patella not requiring debridement. Good patellofemoral tracking and no loose bodies noted in the gutters or suprapatellar pouch there was a displaceable undersurface tear of the body area of the medial meniscus which was trimmed back to stable tissue with the arthroscopic punch and shaver. ACL was probed and found to be intact and lateral meniscus was noted to have significant defects in the body area posterior horn was largely missing but had some fragments toward the discal root area which were debrided back to stable tissue. The knee was again toured to ensure no loose cartilage fragments or loose bodies were present. The knee was drained of arthroscopic fluid portals closed with nylon suture injected with 20 mL of half percent plain Marcaine sterile dressings were applied patient was returned returned to recovery room in stable condition having tolerated procedure well toes were noted be warm pink find deflation of tourniquet ARPITA BRYANT MD Jan 11, 2019 14:01
[2019-01-11] MEDS ORDERED: oxyCODONE/APAP 10/325 1 TAB TABLET PO ONE (14:15)
[2019-01-11 14:30] VITALS: BP 163/105
== END 2019-01-11 15:15 | disposition home or self-care (01) ==
LOC: SURG 09:59
PROVIDERS: ATTEND Orthopaedic Surgery
DX: S83.241A Other tear of medial meniscus, current injury, right knee, initial encounter (principal); S83.281A Other tear of lateral meniscus, current injury, right knee, initial encounter; G47.30 Sleep apnea, unspecified; G43.909 Migraine, unspecified, not intractable, without status migrainosus; I10 Essential (primary) hypertension; E78.00 Pure hypercholesterolemia, unspecified; J44.9 Chronic obstructive pulmonary disease, unspecified; Z87.01 Personal history of pneumonia (recurrent); Z87.891 Personal history of nicotine dependence; X58.XXXA Exposure to other specified factors, initial encounter; Y93.89 Activity, other specified; Y92.89 Other specified places as the place of occurrence of the external cause; Y99.8 Other external cause status
CPT/HCPCS: 29880; A7015; C1782; J0690; J1100; J2001; J2250; J2370; J2405; J2704; J3010; J3490; J7120

== ENCOUNTER 2019-01-15 09:44 | Emergency (ER) | payer BC ==
[~2019-01-15] VITALS: Ht 170.2 cm; Wt 68.9 kg
[~2019-01-15 09:44] MED LIST changes: -BUPIVACAINE-EPI 0.5%-1:200000 MPF 30 ML VIAL. INJ ONE; -HYDROmorphone 2 MG/ML VIAL IV PRN; -IV RINGERS,LACTATED 1000ML 1,000 ML IV SCH; -LIDOCAINE 1% PF 2 ML VIAL. ID PRN; -MORPHINE SULFATE 2 MG/ML VIAL. IV PRN; -ONDANSETRON PF 4 MG/2 ML VIAL. IV PRN; -PROCHLORPERAZINE 10 MG/2 ML VIAL. IV PRN; -fentaNYL PF VIAL 100 MCG/2 ML VIAL IV PRN
[2019-01-15] MEDS ORDERED: MORPHINE SULFATE 10 MG/ML VIAL. IV STA (10:17)
--- NOTE | 2019-01-15 10:29 | PHYS DOC ---
Past Medical History Past Medical History: High Cholesterol Past Surgical History: Other Additional Past Surgical Histo: right knee, multipl knee surgeries. Alcohol Use: Rarely Drug Use: None Adult General Chief Complaint Chief Complaint: POST-OP PROBLEM HPI HPI Patient is a 53 year old male who presents with swelling and pain to his right knee after having surgery on Monday. The patient states his knee had increased swelling on Monday increased pain that started all of a sudden around 9 AM. Rates his pain a 7 out of 10 in severity and sharp. Denies fever. Review of Systems Review of Systems Constitutional: Denies fever or chills [] Eyes: Denies change in visual acuity, redness, or eye pain [] HENT: Denies nasal congestion or sore throat [] Respiratory: Denies cough or shortness of breath [] Cardiovascular: No additional information not addressed in HPI [] GI: Denies abdominal pain, nausea, vomiting, bloody stools or diarrhea [] : Denies dysuria or hematuria [] Musculoskeletal: Reports R knee pain. Integument: Denies rash or skin lesions [] Neurologic: Denies headache, focal weakness or sensory changes [] Endocrine: Denies polyuria or polydipsia [] Complete systems were reviewed and found to be within normal limits, except as documented in this note. Current Medications Current Medications Current Medications Medications (Trade) Dose Ordered Sig/Amelia Start Time Stop Time Status Last Admin Dose Admin Ketorolac Tromethamine (Toradol 15mg Vial) 10 mg 1X ONCE 01/15/19 11:30 01/15/19 11:31 DC 01/15/19 11:25 10 MG Morphine Sulfate (Morphine Sulfate) 5 mg 1X STAT 01/15/19 10:17 01/15/19 10:24 DC Sodium Chloride 1,000 ml @ 1,000 mls/hr 1X ONCE 01/15/19 10:30 01/15/19 11:29 DC 01/15/19 10:49 1,000 MLS/HR Allergies Allergies Allergies Coded Allergies Type Severity Reaction Last Updated Verified amoxicillin Adverse Reaction Intermediate Rash 01/15/19 Yes Physical Exam Physical Exam Constitutional: Well developed, well nourished, no acute distress, non-toxic appearance. [] HENT: Normocephalic, atraumatic, bilateral external ears normal, oropharynx moist, no oral exudates, nose normal. [] Eyes: PERRLA, EOMI, conjunctiva normal, no discharge. [] Neck: Normal range of motion, no tenderness, supple, no stridor. [] Cardiovascular:Heart rate regular rhythm, no murmur [] Lungs & Thorax: Bilateral breath sounds clear to auscultation [] Abdomen: Bowel sounds normal, soft, no tenderness, no masses, no pulsatile masses. [] Skin: Warm, dry, no erythema, no rash. [] Back: No tenderness, no CVA tenderness. [] Extremities: Tenderness to R knee, no cyanosis, no clubbing, ROM mildly reduced, moderate edema, hot to touch. Neurologic: Alert and oriented X 3, normal motor function, normal sensory function, no focal deficits noted. [] Psychologic: Affect normal, judgement normal, mood normal. [] Current Patient Data Vital Signs Vital Signs Date Time Temp Pulse Resp B/P (MAP) Pulse Ox O2 Delivery O2 Flow Rate FiO2 01/15/19 11:54 86 16 117/67 (84) 98 Room Air 01/15/19 10:02 98.6 98.6 Lab Values Laboratory Tests Test 01/15/19 10:17 01/15/19 10:48 White Blood Count 9.5 x10^3/uL (4.0-11.0) Red Blood Count 5.04 x10^6/uL (4.30-5.70) Hemoglobin 14.9 g/dL (13.0-17.5) Hematocrit 43.3 % (39.0-53.0) Mean Corpuscular Volume 86 fL (79-100) Mean Corpuscular Hemoglobin 30 pg (25-35) Mean Corpuscular Hemoglobin Concent 35 g/dL (31-37) Red Cell Distribution Width 13.8 % (11.5-14.5) Platelet Count 314 x10^3/uL (140-400) Neutrophils (%) (Auto) 48 % (31-73) Lymphocytes (%) (Auto) 36 % (24-48) Monocytes (%) (Auto) 15 % (0-9) H Eosinophils (%) (Auto) 2 % (0-3) Basophils (%) (Auto) 1 % (0-3) Neutrophils # (Auto) 4.5 x10^3/uL (1.8-7.7) Lymphocytes # (Auto) 3.4 x10^3/uL (1.0-4.8) Monocytes # (Auto) 1.4 x10^3/uL (0.0-1.1) H Eosinophils # (Auto) 0.1 x10^3/uL (0.0-0.7) Basophils # (Auto) 0.0 x10^3/uL (0.0-0.2) Sodium Level 138 mmol/L (136-145) Potassium Level 3.8 mmol/L (3.5-5.1) Chloride Level 102 mmol/L (98-107) Carbon Dioxide Level 28 mmol/L (21-32) Anion Gap 8 (6-14) Blood Urea Nitrogen 9 mg/dL (8-26) Creatinine 0.9 mg/dL (0.7-1.3) Estimated GFR (Cockcroft-Gault) 89.0 BUN/Creatinine Ratio 10 (6-20) Glucose Level 96 mg/dL (70-99) Calcium Level 8.9 mg/dL (8.5-10.1) Total Bilirubin 0.4 mg/dL (0.2-1.0) Aspartate Amino Transferase (AST) 16 U/L (15-37) Alanine Aminotransferase (ALT) 25 U/L (16-63) Alkaline Phosphatase 86 U/L (46-116) Total Protein 7.3 g/dL (6.4-8.2) Albumin 3.5 g/dL (3.4-5.0) Albumin/Globulin Ratio 0.9 (1.0-1.7) L Lactic Acid Level 0.9 mmol/L (0.4-2.0) Laboratory Tests 01/15/19 10:17 Laboratory Tests 01/15/19 10:17 EKG EKG [] Radiology/Procedures Radiology/Procedures [facility] [address] [place], [place] [id number] IMAGING REPORT Signed PATIENT: AIRAM SORIA ACCOUNT: [id number] : 1965 LOCATION: ER AGE: 53 SEX: M EXAM STATUS: REG ER ORD. PHYSICIAN: ANDREZ TAPIA APRN REASON: post surgical R leg pain PROCEDURE: VENOUS LOWER EXTREMITY RIGHT Right lower extremity venous doppler ultrasound History: Right knee surgery on 01/11/2019, pain and swelling for 2 days Comparison: None Findings: Multiple grayscale, color, and duplex spectral analysis sonographic images were acquired of the right lower extremity veins to evaluate for the presence of DVT. There is normal phasicity. Normal compression, color-flow, and augmentation is demonstrated from the right common femoral to the popliteal veins. There is normal color flow of the proximal greater saphenous and profunda femoris veins. There is normal color flow of segments of the calf veins. There is minimal fluid posterior to the knee. Impression: 1. There is no evidence of deep venous thrombosis from the right common femoral to the popliteal veins. Electronically signed by: Yaya Alvarado MD (01/15/2019 12:01 PM) [id number] DICTATED and SIGNED BY: YAYA ALVARADO MD DATE: 01/15/19 1201 [][facility] [address] [place] [address] IMAGING REPORT Signed PATIENT: AIRAM SORIA ACCOUNT: [id number] : 1965 LOCATION: ER AGE: 53 SEX: M EXAM STATUS: REG ER ORD. PHYSICIAN: ANDREZ TAPIA APRN REASON: post surgical pain,pt having swelling and pain started Sun. surg.last Mon PROCEDURE: KNEE RIGHT 3V Study: KNEE RIGHT 3V Indication: Postsurgical pain. Comparison: None. Findings: Distal femur and proximal tibia interference screws in the setting of ACL reconstruction. The hardware is intact and without loosening. Prominent knee joint effusion. Soft tissue prominence along the anterior aspect of the knee. Irregular lucency along the anterior aspect of the patellar tendon is nonspecific for gas within the soft tissues or potentially air interposed between the sutures. Note acute fracture or discrete periosteal reaction. Chondrocalcinosis noted. Vascular calcifications. Serpiginous densities along the lateral aspect of the distal femur may be postsurgical. Impression: As detailed above, findings at the knee to include a prominent knee joint effusion, soft tissue edema along the anterior aspect of the knee and serpiginous densities along the lateral aspect of the distal femoral condyle which all could be within the broad range of normal given proximity to surgery. No complication is seen to involve the interference screws and no fracture or destructive bony changes are noted. Electronically signed by: DANIKA MCCARTHY MD (01/15/2019 10:53 AM) [facility] DICTATED and SIGNED BY: DANIKA MCCARTHY MD DATE: 01/15/19 1053 Course & Med Decision Making Course & Med Decision Making Pertinent Labs and Imaging studies reviewed. (See chart for details) Will get labs, ultrasound, x-ray, and supportive care. Labs are unremarkable. X-ray: Impression: As detailed above, findings at the knee to include a prominent knee joint effusion, soft tissue edema along the anterior aspect of the knee and serpiginous densities along the lateral aspect of the distal femoral condyle which all could be within the broad range of normal given proximity to surgery. No complication is seen to involve the interference screws and no fracture or destructive bony changes are noted. Electronically signed by: DANIKA MCCARTHY MD (01/15/2019 10:53 AM) [facility] Ultrasound: Impression: 1. There is no evidence of deep venous thrombosis from the right common femoral to the popliteal veins. Electronically signed by: Yaya Alvarado MD (01/15/2019 12:01 PM) [facility] The patient is post surgical with no DVT and x-ray is unremarkable. Knee is hot to touch will place on Augmentin and have follow up with Dr. Bryant. Labs are unremarkable. Dragon Disclaimer Dragon Disclaimer This electronic medical record was generated, in whole or in part, using a voice recognition dictation system. Departure Departure Impression: Primary Impression: Postoperative pain of right knee Disposition: HOME, SELF-CARE Condition: STABLE Referrals: JW SANCHEZ (PCP) ARPITA BRYANT MD Patient Instructions: Knee Pain Additional Instructions: Thank you for visiting [facility]. We appreciate you trusting us with your care. If any additional problems come up don't hesitate to return to visit us. Please follow up with your primary care provider so they can plan additional care if needed and know about the problem that you had. If symptoms worsen come back to the Emergency Department. Any concerning symptoms that start such as chest pain, shortness of air, weakness or numbness on one side of the body, running high fevers or any other concerning symptoms return to the ER. You have been prescribed an antibiotic today to help fight your infection. Please take all of the antibiotic as directed. If after 48 hours the infection is not improving, please return for more care. If the infection worsens, return to ER for additional care. Please follow up with Dr. Bryant. Scripts Cephalexin (KEFLEX) 500 Mg Capsule 1 CAP PO QID for 7 Days, #28 CAP 0 Refills Prov: ANDREZ TAPIA APRN 01/15/19 Amoxicillin/Potassium Clav (AUGMENTIN 875-125 TABLET) 1 Each Tablet 1 TAB PO BID for 7 Days, #14 TAB 0 Refills Prov: ANDREZ TAPIA APRN 01/15/19 ANDREZ TAPIA APRN Jan 15, 2019 10:29
[2019-01-15] MEDS ORDERED: IV NORMAL SALINE 1000ML BAG 1,000 ML IV ONE (10:30)
[2019-01-15 10:34] LABS: BASO % 1 % (0-3); EOS # 0.1 x10^3/uL (0.0-0.7); EOS % 2 % (0-3); HEMATOCRIT 43.3 % (39.0-53.0); HEMOGLOBIN 14.9 g/dL (13.0-17.5); LYMPH # 3.4 x10^3/uL (1.0-4.8); LYMPH % 36 % (24-48); MEAN CORPUSCULAR HEMOGLOBIN 30 pg (25-35); MEAN CORPUSCULAR HGB CONC 35 g/dL (31-37); MEAN CORPUSCULAR VOLUME 86 fL (79-100); MONO # 1.4 x10^3/uL (0.0-1.1); MONO % 15 % (0-9); NEUT # 4.5 x10^3/uL (1.8-7.7); NEUT % 48 % (31-73); PLATELET COUNT 314 x10^3/uL (140-400); RED BLOOD COUNT 5.04 x10^6/uL (4.30-5.70); RED CELL DISTRIBUTION WIDTH 13.8 % (11.5-14.5); WHITE BLOOD COUNT 9.5 x10^3/uL (4.0-11.0)
[2019-01-15 10:52] LABS: CALCIUM 8.9 mg/dL (8.5-10.1); CREATININE 0.9 mg/dL (0.7-1.3); POTASSIUM 3.8 mmol/L (3.5-5.1)
--- NOTE | 2019-01-15 10:56 | RAD ---
Study: KNEE RIGHT 3V Indication: Postsurgical pain. Comparison: None. Findings: Distal femur and proximal tibia interference screws in the setting of ACL reconstruction. The hardware is intact and without loosening. Prominent knee joint effusion. Soft tissue prominence along the anterior aspect of the knee. Irregular lucency along the anterior aspect of the patellar tendon is nonspecific for gas within the soft tissues or potentially air interposed between the sutures. Note acute fracture or discrete periosteal reaction. Chondrocalcinosis noted. Vascular calcifications. Serpiginous densities along the lateral aspect of the distal femur may be postsurgical. Impression: As detailed above, findings at the knee to include a prominent knee joint effusion, soft tissue edema along the anterior aspect of the knee and serpiginous densities along the lateral aspect of the distal femoral condyle which all could be within the broad range of normal given proximity to surgery. No complication is seen to involve the interference screws and no fracture or destructive bony changes are noted. Electronically signed by: DANIKA MCCARTHY MD (01/15/2019 10:53 AM) [facility]
[2019-01-15 10:58] LABS: ALBUMIN 3.5 g/dL (3.4-5.0); ALBUMIN/GLOBULIN RATIO 0.9 (1.0-1.7); TOTAL BILIRUBIN 0.4 mg/dL (0.2-1.0); TOTAL PROTEIN 7.3 g/dL (6.4-8.2)
[2019-01-15] MEDS ORDERED: KETOROLAC 15 MG/ML VIAL. IVP ONE (11:30)
[2019-01-15 11:54] VITALS: BP 117/67
--- NOTE | 2019-01-15 12:04 | RAD ---
Right lower extremity venous doppler ultrasound History: Right knee surgery on 01/11/2019, pain and swelling for 2 days Comparison: None Findings: Multiple grayscale, color, and duplex spectral analysis sonographic images were acquired of the right lower extremity veins to evaluate for the presence of DVT. There is normal phasicity. Normal compression, color-flow, and augmentation is demonstrated from the right common femoral to the popliteal veins. There is normal color flow of the proximal greater saphenous and profunda femoris veins. There is normal color flow of segments of the calf veins. There is minimal fluid posterior to the knee. Impression: 1. There is no evidence of deep venous thrombosis from the right common femoral to the popliteal veins. Electronically signed by: Jalen Goel MD (01/15/2019 12:01 PM) [id number]
[2019-01-15] MEDS ORDERED: AMOX1TAB61 PO (12:18)
[2019-01-15] MEDS ORDERED: CEPH-264 PO (12:45)
== END 2019-01-15 12:47 | disposition home or self-care (01) ==
LOC: ER 09:44
DX: G89.18 Other acute postprocedural pain (principal); M25.561 Pain in right knee; R22.41 Localized swelling, mass and lump, right lower limb; E78.00 Pure hypercholesterolemia, unspecified; Z98.890 Other specified postprocedural states; Z88.1 Allergy status to other antibiotic agents
CPT/HCPCS: 36415; 73562; 80053; 83605; 85025; 93971; 96374; 99285; J1885; J7030